=== PATIENT | female | born 2000 | race Caucasian/White ===

== ENCOUNTER 2019-04-22 10:52 | Outpatient (CLI) | payer OTHER | END 2019-04-22 23:59 | disposition home or self-care (01) | LOC: CFH 10:52 | PROVIDERS: ATTEND Nurse Practitioner Family | DX: Z32.01 Encounter for pregnancy test, result positive (principal) | CPT/HCPCS: 36415; 84702 ==

== ENCOUNTER 2019-04-25 19:23 | Emergency (ER) | payer OTHER ==
[~2019-04-25] VITALS: Ht 162.6 cm; Wt 60.1 kg
--- NOTE | 2019-04-25 19:43 | NUR ---
PT IN GOWN TO BEDSIDE; ATTACHED TO MONITOR; VSS; ORIENTED TO ROOM; PROVIDER AT BEDSIDE; PATIENT C/O CRAMPS AND WORRYING AMOUNT OF VAGINAL BLEEDING STARTED YESTERDAY, HEAVIER BRIGHER AND MORE INTENSE TODAY; SHE IS 4 WEEKS ; AWAITING ORDERS.
--- NOTE | 2019-04-25 20:19 | NUR ---
PATIENT SITTING COMFORTABLY IN BED WITH SPOUSE AT BEDSIDE VSS; RESTING COMFORTABLY AWAITING LABS.
--- NOTE | 2019-04-25 20:32 | NUR ---
LAB CONTACTED; RN INFORMED THAT HEALTH CARE FACILITIES INSPECTOR SHOULD BE ON THEIR WAY.
--- NOTE | 2019-04-25 20:34 | NUR ---
Lead Sprinkler collected and sent labs; awaiting results.
[2019-04-25 20:40] LABS: BASOPHILS # (AUTO) 0.02 x10^3/uL (0-0.1); BASOPHILS % (AUTO) 0 % (0-1); EOSINOPHILS # (AUTO) 0.14 x10^3/uL (0-0.4); EOSINOPHILS % (AUTO) 2 % (1-7); LYMPHOCYTES # (AUTO) 2.14 x10^3/uL (1-3.4); LYMPHOCYTES % (AUTO) 26 % (22-44); MD NO; MEAN CORPUSCULAR HEMOGLOBIN 30.4 pg (27.0-34.8); MEAN CORPUSCULAR HGB CONC 33.4 g/dL (32.4-35.8); MEAN PLATELET VOLUME 8.3 fL (7.4-10.4); MONOCYTES # (AUTO) 0.54 x10^3/uL (0.2-0.8); MONOCYTES % (AUTO) 6 % (2-9); NEUTROPHILS # (AUTO) 5.51 x10^3/uL (1.8-6.8); NEUTROPHILS % (AUTO) 66 % (42-75); PLATELET COUNT 283 x10^3/uL (130-400); RED BLOOD COUNT 4.87 x10^6/uL (3.82-5.3); RED CELL DISTRIBUTION WIDTH 14.2 % (9.6-15.2)
--- NOTE | 2019-04-25 20:56 | NUR ---
Labs back, all results back at this time; chart up for recheck.
[2019-04-25 21:08] VITALS: BP 100/61
--- NOTE | 2019-04-25 21:09 | NUR ---
RN TO BEDSIDE; UPDATED THAT WE ARE AWAITING LABS. PATIENT ESCORTED TO BATHROOM.
== END 2019-04-25 22:02 | disposition home or self-care (01) ==
LOC: ED 19:33
DX: O03.9 Complete or unspecified spontaneous abortion without complication (principal)
CPT/HCPCS: 36415; 84702; 85025; 86901; 99283

== ENCOUNTER 2020-12-13 18:23 | Emergency (ER) | payer MEDICAID ==
[~2020-12-13] VITALS: Ht 162.6 cm; Wt 55.0 kg
--- NOTE | 2020-12-13 18:50 | NUR ---
Pt reporting chest pain x5 days from right clavicle down to last rib on right side.
--- NOTE | 2020-12-13 18:57 | NUR ---
Dr. Cannon at bedside.
--- NOTE | 2020-12-13 19:00 | NUR ---
Dr. Cannon performing US on chest.
[2020-12-13] MEDS ORDERED: HYDROcodone/APAP 5/325 TABLET ONE (19:13)
[2020-12-13] MEDS ORDERED: KETOROLAC 30 MG/1 ML ONE (19:13)
--- NOTE | 2020-12-13 19:23 | NUR ---
Medicated per eMAR, XR at bedside.
[2020-12-13] MEDS ORDERED: HYDROcodone/APAP 5/325 TABLET PO ONE (19:30)
[2020-12-13] MEDS ORDERED: KETOROLAC 30 MG/1 ML IM ONE (19:30)
[2020-12-13 19:49] VITALS: BP 104/62
--- NOTE | 2020-12-13 19:58 | NUR ---
Pt agrees with and understands discharge plan and instructions.
== END 2020-12-13 20:37 | disposition home or self-care (01) ==
LOC: ED 20:15
DX: M94.0 Chondrocostal junction syndrome [Tietze] (principal); R07.89 Other chest pain; R06.00 Dyspnea, unspecified; R00.0 Tachycardia, unspecified
CPT/HCPCS: 71045; 93005; 96372; 99283; J1885

== ENCOUNTER 2020-12-14 18:54 | Emergency (ER) | payer MEDICAID ==
[~2020-12-14] VITALS: Ht 162.6 cm; Wt 64.6 kg
--- NOTE | 2020-12-14 19:20 | NUR ---
TASK RN: PT TO ROOM 37 W/ C/O SOB, FEVER, SIBLEY, CP RADIATING TO R ARM/SHOULDER SHARP X 5 DAYS. PT STATES SHE HAD COVID SX 2 WEEKS AGO BUT TESTED NEGATIVE THEN. STATES SHE HAD FEVER THIS AM. PT RESTING ON GURNEY. NADN. MONITORS APPLIED. VSS. PIV INITIATED. WARM BLANKET PROVIDED. REPORT HERNAN LOPEZ, PRIMARY RN.
[2020-12-14] MEDS ORDERED: KETOROLAC 30 MG/1 ML ONE (19:26)
[2020-12-14] MEDS ORDERED: LORazepam 2 MG/ML, 1ML ONE (19:26)
[2020-12-14] MEDS ORDERED: LORazepam 2 MG/ML, 1ML IV ONE (19:30)
[2020-12-14] MEDS ORDERED: KETOROLAC 30 MG/1 ML IVPush ONE (19:30)
[2020-12-14] MEDS ORDERED: SODIUM CHLORIDE FLUSH 10ML SYR IVF ONE (19:30)
[2020-12-14 19:39] LABS: BASOPHILS % (AUTO) 0 % (0-1); EOSINOPHILS % (AUTO) 3 % (1-7); LYMPHOCYTES % (AUTO) 28 % (22-44); MD NO; MEAN CORPUSCULAR HEMOGLOBIN 30.1 pg (27.0-34.8); MEAN CORPUSCULAR HGB CONC 34.3 g/dL (32.4-35.8); MEAN PLATELET VOLUME 8.4 fL (7.4-10.4); MONOCYTES % (AUTO) 5 % (2-9); NEUTROPHILS % (AUTO) 64 % (42-75); PLATELET COUNT 274 x10^3/uL (130-400); RED CELL DISTRIBUTION WIDTH 12.8 % (9.6-15.2)
[2020-12-14 19:42] LABS: ALBUMIN 3.8 g/dL (3.4-5.0); ANION GAP 7 mmol/L (5-15); CALCIUM 9.1 mg/dL (8.5-10.1); CHLORIDE 109 mmol/L (98-107)
--- NOTE | 2020-12-14 19:55 | NUR ---
PT ON AUTOMOBILES SALESPERSON WITH BED RAILS UP BILATERALLY AND CALL LIGHT WITHIN REACH. NO SIGNS OR SYMPTOMS OF ACUTE DSITRESS NOTED RESPIRATIONS EVEN AND UNLABORED, PT STATES PAIN UNCHANGED SINCE ADMIN OF IV TORADOL.
--- NOTE | 2020-12-14 21:00 | NUR ---
pt in bed with no signs or symptoms of acute distress noted respirations even and unlabored, on security shift manager with call light within reach and bed rails up bilaterally. pt updated on plan of care, all questions answered. pt denies need at this time. verbalizes understanding and agreement with plan of care. pt pending hcg then cta.
[2020-12-14] MEDS ORDERED: OMNIPAQUE 350 MG/ML, 100ML BOTTLE ONE (22:00)
[2020-12-14 22:59] VITALS: BP 107/69
== END 2020-12-14 23:01 | disposition home or self-care (01) ==
LOC: ED 21:08
DX: R07.89 Other chest pain (principal); R11.2 Nausea with vomiting, unspecified; R50.9 Fever, unspecified; R94.31 Abnormal electrocardiogram [ECG] [EKG]; R06.02 Shortness of breath
CPT/HCPCS: 36415; 71045; 71275; 80048; 82040; 84703; 85025; 85379; 93005; 96374; 96375; 99285; J1885; J2060; Q9967